=== PATIENT | male | born 1985 | race African-American/Black ===

== ENCOUNTER 2019-07-07 12:45 | Emergency (ER) | payer MEDICAID ==
[~2019-07-07] VITALS: Ht 180.3 cm; Wt 136.4 kg
[2019-07-07] MEDS ORDERED: METF-960 PO (12:59)
[2019-07-07] MEDS ORDERED: IBUPROFEN 400 MG TABLET PO ONE (14:15)
[2019-07-07] MEDS ORDERED: PERTUSS(ACELL),DIPH,TET VAC/PF 0.5 ML VIAL IM ONE (14:15)
[2019-07-07] MEDS ORDERED: BACITRACIN 0.9 GM PACKET OINTMENT TP ONE (14:15)
[2019-07-07 15:20] VITALS: BP 136/84
== END 2019-07-07 15:32 | disposition home or self-care (01) ==
LOC: EMS 12:48
DX: S81.812A Laceration without foreign body, left lower leg, initial encounter (principal); E11.9 Type 2 diabetes mellitus without complications; Z79.84 Long term (current) use of oral hypoglycemic drugs; W45.8XXA Other foreign body or object entering through skin, initial encounter; Y93.01 Activity, walking, marching and hiking; Y92.89 Other specified places as the place of occurrence of the external cause; Y99.8 Other external cause status
CPT/HCPCS: 90471; 90715

== ENCOUNTER 2024-01-28 14:17 | Emergency (ER) | payer MEDICAID, OTHER ==
[~2024-01-28] VITALS: Ht 180.3 cm; Wt 140.9 kg
[~2024-01-28 14:17] MED LIST: METF-1211 PO
[2024-01-28 14:21] VITALS: BP 155/77; PULSE 89; RESP 22; TEMP 97.7
[2024-01-28] MEDS: HYDROmorphone HCL 2 MG/ML SYRINGE IM ONE (15:02)
[2024-01-28] MEDS: IBUPROFEN 600 MG TABLET PO ONE (15:02)
[2024-01-28] MEDS: ONDANSETRON HCL 4 MG/2 ML VIAL IM ONE (15:02)
[2024-01-28] MEDS ORDERED: IBUP-1554 PO (15:59)
[2024-01-28] MEDS ORDERED: HYDR-4072 PO (15:59)
[2024-01-28] MEDS ORDERED: BACI28.410 TP (15:59)
== END 2024-01-28 16:39 | disposition home or self-care (01) ==
LOC: EMS 14:17
DX: T20.19XA Burn of first degree of multiple sites of head, face, and neck, initial encounter (principal); E11.9 Type 2 diabetes mellitus without complications; X08.8XXA Exposure to other specified smoke, fire and flames, initial encounter; Y93.89 Activity, other specified; Y92.89 Other specified places as the place of occurrence of the external cause; Y99.8 Other external cause status
CPT/HCPCS: 99284; 82962; 96372; J1170; J2405